=== PATIENT | male | born 1965 | race Two or more races ===

== ENCOUNTER 2022-03-17 10:51 | Inpatient (IN) | payer MEDICAID ==
[~2022-03-17] VITALS: Ht 170.2 cm; Wt 79.4 kg
--- NOTE | 2022-03-17 12:00 | NUR ---
RECEIVED PT 56 YRS MALE CAME FROM HOME ACCOMPANY BY FAMILY FOR GERALIZED EDEMA AND WEEKNE SS
[2022-03-17 12:54] LABS: CALCIUM, SERUM 8.1 mg/dL (8.5-10.1); CARBON DIOXIDE 21 mmol/L (21-32); CHLORIDE 113 mmol/L (98-107); CREATININE 0.9 mg/dL (0.6-1.3); GLUCOSE 65 mg/dL (74-106); POTASSIUM 3.6 mmol/L (3.5-5.1); SODIUM SERUM 145 mmol/L (136-145); UREA NITROGEN, BLOOD 15 mg/dL (7-18)
--- NOTE | 2022-03-17 13:00 | NUR ---
BLOOD DROW BY LAB TACH
[2022-03-17 13:09] LABS: ALANINE AMINOTRANSFERASE 10 U/L (12-78); ALBUMIN 2.5 g/dL (3.4-5.0); ALKALINE PHOSPHATASE 64 U/L (46-116); ASPARTATE AMINOTRANSFERASE 13 U/L (15-37); BILIRUBIN,DIRECT 0.5 mg/dL (0.0-0.2); BILIRUBIN,TOTAL 1.2 mg/dL (0.2-1.0); LIPASE 100 U/L (73-393)
[2022-03-17] MEDS ORDERED: IOHEXOL-300 100 ML VIAL IV ONE (13:26)
[2022-03-17] MEDS ORDERED: CT SWABBABLE VALVE TRANS SET 1 EA INFUS.SET MC ONE (13:26)
[2022-03-17] MEDS ORDERED: IV NS 0.9% 250 ML IV ONE (13:26)
[2022-03-17 13:39] LABS: BASOPHILS % (AUTO) 2.2 % (0.0-2.0); EOSINOPHILS % (AUTO) 0.5 % (0.0-6.0); LYMPHOCYTES # (AUTO) 0.4 K/uL (0.8-4.8); LYMPHOCYTES % (AUTO) 17.8 % (20.0-44.0); MEAN CORPUSCULAR HGB CONC 27 g/dl (31.0-36.0); MEAN CORPUSCULAR VOLUME 66 fL (80-96); MONOCYTES # (AUTO) 0.2 K/uL (0.1-1.30); MONOCYTES % (AUTO) 7.7 % (2.0-12.0); NEUTROPHILS # (AUTO) 1.6 K/uL (1.8-8.9); NEUTROPHILS % (AUTO) 71.8 % (43.0-81.0); PLATELET COUNT (AUTO) 95 K/uL (150-450); WHITE BLOOD COUNT (AUTO) 2.2 K/uL (4.3-11.0)
[2022-03-17 13:54] LABS: RED BLOOD CELL COUNT(AUTO) 1.67 MIL/uL (4.5-6.0)
[2022-03-17 13:56] LABS: HEMATOCRIT 11 % (39-51)
--- NOTE | 2022-03-17 13:58 | NUR ---
wbc 2.2, rbc 1.67, hgb 3.0, hematocrit 11, dr giles made aware
--- NOTE | 2022-03-17 14:30 | NUR ---
COVED SWAB SENT TO LAB
--- NOTE | 2022-03-17 15:47 | NUR ---
CALLED [facility] [phone] CLOSED DUE TO NO CAPACITY AT THIS TIME PER BEATRIZ.
[2022-03-17] MEDS ORDERED: FUROSEMIDE 40 MG/4 ML VIAL IV ONE (16:00)
[2022-03-17] MEDS ORDERED: CEFTRIAXONE 1GM BAG (ER ONLY) 1 GM/50 ML PIGGYBACK IV ONE (16:00)
[2022-03-17] MEDS ORDERED: CEFTRIAXONE 1GM BAG (ER ONLY) 50 ML IV ONE (16:15)
[2022-03-17] MEDS ORDERED: FUROSEMIDE 100 MG/10 ML VIAL ONE (16:16)
--- NOTE | 2022-03-17 17:50 | NUR ---
paracentesis done at bed side under us OUT PUT 5500 CLEARE GREEN COLOR NO BLEEDING NO BLOOD
--- NOTE | 2022-03-17 18:35 | NUR ---
PLAN TO SEND 500ML TO LAB FOR BX
[2022-03-17 19:04] LABS: BILIRUBIN,URINE NEGATIVE (NEGATIVE); COLOR,URINE YELLOW (YELLOW); LEUKOCYTE ESTERASE ,URINE NEGATIVE (NEGATIVE); NITRITE, URINE NEGATIVE (NEGATIVE); PH,URINE 5.5 (5.0-8.0); PROTEIN,URINE NEGATIVE (NEGATIVE); UGLUCOSE NEGATIVE (NEGATIVE); UROBILINOGEN,URINE 0.2 EU/dL (0.2)
--- NOTE | 2022-03-17 19:35 | NUR ---
HAND OFF TO ELLIOTT LI
--- NOTE | 2022-03-17 19:43 | NUR ---
Took over pt care. pt will require 3 units of blood. awaiting lab to call.
--- NOTE | 2022-03-17 20:03 | NUR ---
CALLED [facility], SPOKE TO [facility]
--- NOTE | 2022-03-17 20:46 | NUR ---
CALLED [facility], SPOKE TO ERICK, FAXED CLINICALS TO [phone]
--- NOTE | 2022-03-17 20:54 | NUR ---
[facility] SPOKE TO MARLEE STATES DO NOT HAVE HEPATOBILIARY SPECIALIST SERVICES
--- NOTE | 2022-03-17 21:03 | NUR ---
3 UNITS OF BLOOD AVAILABLE.
[2022-03-17 21:46] LABS: LYMPHOCYTES % (MANUAL) 12 % (16-48); MONOCYTES % (MANUAL) 6 % (0-11.0); NEUTROPHILS % (MANUAL) 82 (42-76)
--- NOTE | 2022-03-17 22:34 | NUR ---
PT RESTING COMFORTABLY. ON MIXING HOUSE OPERATOR AND PULSE OX. DENIES HAVING ANY PAIN.
--- NOTE | 2022-03-18 00:34 | NUR ---
PT DENIES HAVING ANY SOB/ VSS. REMAINS ON MONITOR AND PULSE OX.
--- NOTE | 2022-03-18 02:49 | NUR ---
PT NOTED TO BE ASLEEP, VSS. WILL CONTINUE TO MONITOR.
[2022-03-18 03:29] LABS: HEMOGLOBIN 6.6 g/dL (13.5-17.5)
--- NOTE | 2022-03-18 05:21 | NUR ---
REPEAT TROP DONE AT BEDSIDE.
--- NOTE | 2022-03-18 09:25 | NUR ---
IZZY BLACKBURN [phone] AT BEDSIDE
--- NOTE | 2022-03-18 09:40 | NUR ---
CALLED [facility] [phone]. TO TRANSPLANT MELROSE [phone] DR. MORIN SPEAKING WITH [facility].
--- NOTE | 2022-03-18 15:40 | NUR ---
CALLED [facility] [phone], SPOKE TO GABI , FAXED FACESHEET AND CLINICALS TO [phone]
[2022-03-18 16:19] LABS: BASOPHILS % (AUTO) 0.9 % (0.0-2.0); EOSINOPHILS % (AUTO) 0.1 % (0.0-6.0); HEMATOCRIT 27 % (39-51); HEMOGLOBIN 8.4 g/dL (13.5-17.5); LYMPHOCYTES # (AUTO) 0.4 K/uL (0.8-4.8); LYMPHOCYTES % (AUTO) 9.5 % (20.0-44.0); MEAN CORPUSCULAR HGB CONC 31 g/dl (31.0-36.0); MEAN CORPUSCULAR VOLUME 76 fL (80-96); MONOCYTES # (AUTO) 0.3 K/uL (0.1-1.30); MONOCYTES % (AUTO) 7.3 % (2.0-12.0); NEUTROPHILS # (AUTO) 3.8 K/uL (1.8-8.9); NEUTROPHILS % (AUTO) 82.2 % (43.0-81.0); PLATELET COUNT (AUTO) 105 K/uL (150-450); RED BLOOD CELL COUNT(AUTO) 3.56 MIL/uL (4.5-6.0); WHITE BLOOD COUNT (AUTO) 4.7 K/uL (4.3-11.0)
[2022-03-18 16:28] LABS: CALCIUM, SERUM 8.1 mg/dL (8.5-10.1); CARBON DIOXIDE 24 mmol/L (21-32); CHLORIDE 111 mmol/L (98-107); GLUCOSE 125 mg/dL (74-106); POTASSIUM 3.3 mmol/L (3.5-5.1); SODIUM SERUM 143 mmol/L (136-145); UREA NITROGEN, BLOOD 17 mg/dL (7-18)
[2022-03-18 16:43] LABS: ALANINE AMINOTRANSFERASE 7 U/L (12-78); ALBUMIN 2.3 g/dL (3.4-5.0); ALKALINE PHOSPHATASE 61 U/L (46-116); ASPARTATE AMINOTRANSFERASE 13 U/L (15-37); BILIRUBIN,TOTAL 2.6 mg/dL (0.2-1.0); TOTAL PROTEIN, SERUM 5.9 g/dL (6.4-8.2)
--- NOTE | 2022-03-18 18:30 | NUR ---
ANSELMO FROM [facility] TRANSFER [facility]: PT NOT A TRANSPLANT CANDIDATE. NOT ACCEPTING MEDICAL AFTER 1700. CAN BE REPRESENTED IN THE MORNING.
[2022-03-18 19:45] LABS: LYMPHOCYTES % (MANUAL) 18 % (16-48); MONOCYTES % (MANUAL) 3 % (0-11.0); NEUTROPHILS % (MANUAL) 79 (42-76)
--- NOTE | 2022-03-18 21:05 | NUR ---
PT IS RESTING COMFORTABLY IN BED, DENIES ANY PAIN AT THIS TIME. VSS. WILL CONTINUE TO MONITOR
--- NOTE | 2022-03-18 21:53 | NUR ---
CALLED [facility] [phone], SPOKE TO LEONORA FUENTES, NO TELE BEDS CURRENTLY BUT ACCEPTED FAX [phone] OF CLINICALS AND FACESHEET AND STATED WILL REVIEW IF TELE BED BECOMES AVAILABLE
--- NOTE | 2022-03-19 02:51 | NUR ---
PT IS ASLEEP, EASILY AROUSABLE WITH VERBAL STIMULLI. VSS. WILL CONTINUE TO MONITOR.
--- NOTE | 2022-03-19 09:00 | NUR ---
DR. MACARIO FROM [facility] SPEAKING WITH DR. CROOK. PT ACCEPTED AWAITING BED ASSIGNMENT.
--- NOTE | 2022-03-19 12:57 | NUR ---
CALLED TRANSFER CENTER [phone] PER ANSELMO AWAITING BED ASSIGNMENT. CALL FOLLOW UP THIS EVENING. PT ACCEPTED BY DR. SCOTT MACARIO.
--- NOTE | 2022-03-20 | NUR ---
PATIENT RESTING COMFORTABLY NO COMPLAINTS AT THIS TIME.
--- NOTE | 2022-03-20 05:45 | NUR ---
PATIENT REFUSING BLOOD DRAW, MD NUÑEZ MADE AWARE.
--- NOTE | 2022-03-20 08:56 | NUR ---
received a call from [facility] transfer center per Teresa still waiting for discharges, bed pending.
--- NOTE | 2022-03-20 13:21 | NUR ---
CALLED INPATIENT PLACEMENT [phone] MEDICINE CRYSTAL GERARD WILL CALL US BACK BEFORE 7PM
--- NOTE | 2022-03-20 15:40 | NUR ---
JOURNEYMAN ELECTRICIAN AT BEDSIDE FOR BLOOD DRAW
[2022-03-20 15:50] LABS: BASOPHILS # (AUTO) 0.1 K/uL (0.0-0.2); BASOPHILS % (AUTO) 2.5 % (0.0-2.0); EOSINOPHILS % (AUTO) 0.7 % (0.0-6.0); HEMATOCRIT 25 % (39-51); HEMOGLOBIN 7.4 g/dL (13.5-17.5); LYMPHOCYTES # (AUTO) 0.5 K/uL (0.8-4.8); LYMPHOCYTES % (AUTO) 16.3 % (20.0-44.0); MEAN CORPUSCULAR HGB CONC 30 g/dl (31.0-36.0); MEAN CORPUSCULAR VOLUME 77 fL (80-96); MONOCYTES # (AUTO) 0.3 K/uL (0.1-1.30); MONOCYTES % (AUTO) 11.9 % (2.0-12.0); NEUTROPHILS % (AUTO) 68.6 % (43.0-81.0); PLATELET COUNT (AUTO) 68 K/uL (150-450); RED BLOOD CELL COUNT(AUTO) 3.19 MIL/uL (4.5-6.0); WHITE BLOOD COUNT (AUTO) 2.9 K/uL (4.3-11.0)
[2022-03-20 18:22] LABS: BAND % (MANUAL) 2 % (0.0-5.0); EOSINOPHILS % (MANUAL) 3 % (0-4); LYMPHOCYTES % (MANUAL) 20 % (16-48); MONOCYTES % (MANUAL) 4 % (0-11.0); NEUTROPHILS % (MANUAL) 71 (42-76)
--- NOTE | 2022-03-20 18:26 | NUR ---
CALLED INPATIENT PLACEMENT [phone] [facility] FOR UPDATE STILL AWAITING DISCHARGES FOR BED AVAILABILITY.
--- NOTE | 2022-03-20 19:03 | NUR ---
NATALEE FROM [facility] CALLED [phone] TO FOLLOW UP ON IF WE STILL NEEDED ACCEPTANCE TO PATIENT. INFORMED THAT PT ACCEPTED AT [facility], BUT STILL AWAITING BED AVAILABILITY AFTER 30 HOURS PLUS. REQUESTING MD PROGRESS NOTES FAXED TO [phone] AND WILL CONTACT US PENDING ACCEPTENCE.
[2022-03-20 19:35] LABS: CALCIUM, SERUM 8.1 mg/dL (8.5-10.1); CREATININE 0.7 mg/dL (0.6-1.3); POTASSIUM 3.7 mmol/L (3.5-5.1)
[2022-03-20 19:41] LABS: ALBUMIN 2.2 g/dL (3.4-5.0); BILIRUBIN,TOTAL 1.7 mg/dL (0.2-1.0); TOTAL PROTEIN, SERUM 5.6 g/dL (6.4-8.2)
--- NOTE | 2022-03-20 22:26 | NUR ---
ESTELA FROM [facility]: IN NEED OF CLINICALS FAXED TO [phone] CALL BACK AFTER FAXED FOR UPDATED VS [phone]
--- NOTE | 2022-03-20 22:42 | NUR ---
PCR COVID SWAB COLLECTED AND SENT TO LAB
--- NOTE | 2022-03-21 00:30 | NUR ---
MELD SCORE: 15 POINTS
--- NOTE | 2022-03-21 00:42 | NUR ---
S/W ESTELA FROM [facility] , DR MOROCHO IS DECLINING PT, RECOMMENDS : DIURETICS AND OUTPATIENT TRANSPLANT CLINIC
[2022-03-21 06:30] LABS: ALBUMIN 1.9 g/dL (3.4-5.0); BILIRUBIN,DIRECT 0.4 mg/dL (0.0-0.2); BILIRUBIN,TOTAL 1.7 mg/dL (0.2-1.0); CREATININE 0.6 mg/dL (0.6-1.3); POTASSIUM 3.4 mmol/L (3.5-5.1)
[2022-03-21 06:53] LABS: BASOPHILS % (AUTO) 1.2 % (0.0-2.0); HEMATOCRIT 21 % (39-51); LYMPHOCYTES # (AUTO) 0.4 K/uL (0.8-4.8); LYMPHOCYTES % (AUTO) 21.4 % (20.0-44.0); MEAN CORPUSCULAR HGB CONC 30 g/dl (31.0-36.0); MEAN CORPUSCULAR VOLUME 77 fL (80-96); MONOCYTES # (AUTO) 0.2 K/uL (0.1-1.30); MONOCYTES % (AUTO) 11.1 % (2.0-12.0); NEUTROPHILS # (AUTO) 1.2 K/uL (1.8-8.9); NEUTROPHILS % (AUTO) 65.3 % (43.0-81.0); PLATELET COUNT (AUTO) 57 K/uL (150-450); RED BLOOD CELL COUNT(AUTO) 2.67 MIL/uL (4.5-6.0)
[2022-03-21 06:55] LABS: HEMOGLOBIN 6.2 g/dL (13.5-17.5); WHITE BLOOD COUNT (AUTO) 1.8 K/uL (4.3-11.0)
--- NOTE | 2022-03-21 06:56 | NUR ---
CALL FROM LAB. HGB 6.2. DR OTTO NOTIFIED
[2022-03-21 07:38] LABS: EOSINOPHILS % (MANUAL) 1 % (0-4); LYMPHOCYTES % (MANUAL) 24 % (16-48); MONOCYTES % (MANUAL) 8 % (0-11.0); NEUTROPHILS % (MANUAL) 67 (42-76)
--- NOTE | 2022-03-21 08:11 | NUR ---
CALLED DR. BUTLER LEFT VM
--- NOTE | 2022-03-21 08:13 | NUR ---
[facility] CALLED FLOOR CLERK PAGED.
--- NOTE | 2022-03-21 08:50 | NUR ---
MOVE SHEET SUBMITTED.
[2022-03-21] MEDS ORDERED: ACETAMINOPHEN 325 MG TABLET PO PRN (09:00)
[2022-03-21] MEDS ORDERED: ZOLPIDEM TARTRATE 5 MG TABLET PO PRN (09:00)
[2022-03-21] MEDS ORDERED: ONDANSETRON HCL/PF 4 MG/2 ML VIAL IVP PRN (09:00)
[2022-03-21] MEDS ORDERED: MAG HYDROX/AL HYDROX/SIMETH 30 ML UDC PO PRN (09:00)
[2022-03-21] MEDS ORDERED: MAGNESIUM HYDROXIDE 30 ML UDC PO PRN (09:00)
[2022-03-21] MEDS ORDERED: IV NS 0.9% 1,000 ML IV PRN (09:00)
[2022-03-21] MEDS ORDERED: Z GUARD REMEDY 4 OZ OINT TP PRN (09:00)
--- NOTE | 2022-03-21 09:35 | NUR ---
GOT BED 304-2
--- NOTE | 2022-03-21 09:55 | NUR ---
PT REPORT GIVEN TO JEN SALMON
--- NOTE | 2022-03-21 10:20 | NUR ---
PT TRANSFERRED TO [facility] VIA GURNEY. WARM HANDOFF GIVEN TO RN ASSIGNED.
--- NOTE | 2022-03-21 10:30 | NUR ---
POST EXCHANGE MANAGER NOTES RECEIVED PT FROM E.R. STAFF VIA [facility], PT IS AWAKE, ALERT AND ORIENTED, NO COMPLAINT OF PAIN AT THIS TIME, RESPIRATIONS NORMAL, ABLE TO WALK FROM [facility] TO BED, STEADY GAIT, IV SITE AT RIGHT A/C INTACT, ROOM SET UP ORIENTATION PROVIDED TO PT, VERBALIZED UNDERSTANDING, SEEN AND EXAMINED BY DR. BAKER, PLAN OF CARE DISCUSSED WITH PT, VITALS TAKEN AND RECORDED, ORDER RECEIVED TO TRANSFUSE 1 UNIT PRBC, NOTED AND CARRIED OUT.
--- NOTE | 2022-03-21 10:30 | NUR ---
PROCESS AREA SUPERVISOR NOTES PT ON TELE MONITORING, CURRENTLY SINUS RHYTHM WITH HR ON THE 70'S, PT NOTED WITH DISTENDED ABDOMEN, NO COMPLAINT OF PAIN OR ANY DISCOMFORT AT THIS TIME.
[2022-03-21] MEDS: PANTOPRAZOLE 40 MG VIAL IV SCH ×2 (12:42→22:01)
[2022-03-21 13:18] LABS: HEMOGLOBIN 6.9 g/dL (13.5-17.5)
[2022-03-21 16:02] VITALS: BP 112/68
[2022-03-21 16:17] VITALS: BP 108/70
[2022-03-21 16:40] VITALS: BP 130/67
[2022-03-21 17:40] VITALS: BP 141/69
--- NOTE | 2022-03-21 18:26 | NUR ---
INVENTORY ADMINISTRATOR NOTES PT IN BED, RESTING, AWAKE, ALERT AND ORIENTED, NO COMPLAINT OF PAIN OR ANY DISCOMFORT, BLOOD TRANSFUSION ONGOING, TOLERATING WELL, VITALS REMAIN STABLE, AFEBRILE, CALL LIGHT WITHIN REACH, KEPT NPO, ALL NEEDS ATTENDED.
[2022-03-21 18:55] VITALS: BP 142/70
--- NOTE | 2022-03-21 19:20 | NUR ---
RETAIL PLANNING MANAGER OPENING NOTES: RECEIVED PATIENT IN BED, AWAKE, NO S/S OF DISTRESS NOTED. NO COMPLAIN OF PAIN. CALL LIGHT WITHIN REACH. BED IN LOWEST AND LOCKED POSITION. BED ALARM ON. WITH ASCITES. NPO, PATIENT AWARE,SENIOR INTERNAL AUDITOR AWARE. STOOL COLLECTION FOR OB,PATIENT IS AWARE. ON SR 72.
[2022-03-21 20:00] VITALS: BP 119/75
--- NOTE | 2022-03-21 20:16 | NUR ---
A/O X4.
--- NOTE | 2022-03-21 23:30 | NUR ---
patient refused the IVF for now.
[2022-03-22] VITALS: BP 109/69
[2022-03-22 04:00] VITALS: BP 107/66
[2022-03-22 05:52] LABS: BASOPHILS % (AUTO) 1.4 % (0.0-2.0); EOSINOPHILS % (AUTO) 1.1 % (0.0-6.0); HEMATOCRIT 26 % (39-51); HEMOGLOBIN 7.6 g/dL (13.5-17.5); LYMPHOCYTES # (AUTO) 0.4 K/uL (0.8-4.8); LYMPHOCYTES % (AUTO) 21.4 % (20.0-44.0); MEAN CORPUSCULAR HGB CONC 30 g/dl (31.0-36.0); MEAN CORPUSCULAR VOLUME 80 fL (80-96); MONOCYTES # (AUTO) 0.2 K/uL (0.1-1.30); NEUTROPHILS # (AUTO) 1.1 K/uL (1.8-8.9); NEUTROPHILS % (AUTO) 64.1 % (43.0-81.0)
[2022-03-22 06:19] LABS: CALCIUM, SERUM 8.1 mg/dL (8.5-10.1); CREATININE 0.7 mg/dL (0.6-1.3); MAGNESIUM 1.8 mg/dL (1.8-2.4); PHOSPHORUS 3.3 mg/dL (2.5-4.9); POTASSIUM 3.7 mmol/L (3.5-5.1); TOTAL PROTEIN, SERUM 5.2 g/dL (6.4-8.2)
[2022-03-22 06:33] LABS: PLATELET COUNT (AUTO) 49 K/uL (150-450); WHITE BLOOD COUNT (AUTO) 1.8 K/uL (4.3-11.0)
--- NOTE | 2022-03-22 06:41 | NUR ---
INFORMED MD RE: WBC-1.8, PLATELET-49.
--- NOTE | 2022-03-22 07:15 | NUR ---
RN TELEMETRY NOTE RECEIVED PATIENT ALERT AND ORIENTEDX4. ON ROOM AIR WIHT EQUAL AND UNLABORED BREATHING NOT IN DISTRESS. ON TEL MONITOR RFA G18 WITH NS RUNNING AT 90CC/HR. IN STABLE CONDITION.
[2022-03-22 08:00] VITALS: BP 124/67
[2022-03-22] MEDS: PANTOPRAZOLE 40 MG VIAL IV SCH ×2 (08:47→21:44)
[2022-03-22] MEDS ORDERED: IV LR 1000 ML 1,000 ML IV PRN (10:30)
[2022-03-22] MEDS ORDERED: OCTREOTIDE 500 MCG in IV NS 0.9% 99 ML IV PRN (10:30)
[2022-03-22] MEDS ORDERED: OCTREOTIDE 50 MCG/ML AMPUL IV ONE (10:30)
[2022-03-22 11:20] LABS: EOSINOPHILS % (MANUAL) 1 % (0-4); LYMPHOCYTES % (MANUAL) 18 % (16-48); MONOCYTES % (MANUAL) 4 % (0-11.0); NEUTROPHILS % (MANUAL) 77 (42-76)
[2022-03-22] MEDS ORDERED: ANESTHESIA TRAY IN PYXIS 1 EA TRAY MC ONE (11:44)
--- NOTE | 2022-03-22 11:45 | NUR ---
radha used with manager developmental number [id number]
--- NOTE | 2022-03-22 12:00 | NUR ---
STUDENT AMBASSADOR NOTE PATIENT BROUGHT DOWN AT OR FOR EGD UNDER DR. BUTLER. CONSENTS SIGHNED AND SECURE, ATTACHED TO CHART. PATIENT PICKED UP BY OR NURSE. IN STABLE CONDITION.
--- NOTE | 2022-03-22 13:50 | NUR ---
LINE TESTER NOTE PATIENT BACK FROM OR. ALERT AND ORIENTED. WITH SOME DISCOMFORT BUT REFUSED ANALGESIC AT THIS TIME. S/P EGD WITH BANDING X 7. IN STABLE CONDITION. ON ROOM AIR. HOOKED BACK TO TELE MONITOR.
--- NOTE | 2022-03-22 14:30 | NUR ---
PACKAGER HEAD NOTE WITH MD ORDER TO START ON CLEAR LIQUIDS. ORDER MADE AND VERIFIED. PATIENT FOR CT GUIDED PARACENTESIS, CONSENT SECURED AND ATTACHED TO CHART. VERIFIED WITH ENGRAVER ORNAMENTAL DESIGN, PATIENT CAN EAT. AND WILL CALL AGAIN IF PROCEDURE WOULD PUSH THROUGH BECAUSE OF LATEST PLATELET RESULT. NO SIGNS OF BLEEDING NOTED AT THIS TIME. IN STABLE CONDITION.
[2022-03-22] MEDS: CEFTRIAXONE 1 G in IV D5W 50 ML IV SCH (15:24)
[2022-03-22 16:00] VITALS: BP 140/78
[2022-03-22] MEDS: FUROSEMIDE 40 MG TABLET PO SCH (18:17)
[2022-03-22] MEDS: SPIRONOLACTONE 25 MG TABLET PO SCH (18:17)
--- NOTE | 2022-03-22 19:30 | NUR ---
TELERN RECEIVED ASLEEP. PRESENT IVF LR AT 100CC/HR INFUSING WELL. TELE MONITOR SHOWING NSR AT RATE 74. TO CONTINUE.
[2022-03-22 19:57] VITALS: BP 133/75
[2022-03-22 20:00] VITALS: BP 133/75
--- NOTE | 2022-03-22 20:49 | NUR ---
TELERN AWAKE AT THIS TIME. REFUSED IVF AT THIS TIME WANTED EVERYTHING INCLUDING BLOOD WORKS IN AM INSTEAD. IVF ON HOLD FOR NOW.
--- NOTE | 2022-03-22 20:51 | NUR ---
TELERN RECEIVED CALL FROM RADIOLOGY DEPT FOR CLARIFICATION OF PARACENTHESIS. ULTRASOUND GUIDED NOT CT. NOTED.
[2022-03-22] MEDS: PROPRANOLOL HCL 10 MG TABLET PO SCH (21:45)
--- NOTE | 2022-03-22 22:58 | NUR ---
TELERN DUE MEDS GIVEN , STILL REFUSED IVFLUIDS.
[2022-03-23] VITALS (8 sets, daily range): BP systolic 110–141; BP diastolic 63–77
[2022-03-23 06:18] LABS: CALCIUM, SERUM 8.2 mg/dL (8.5-10.1); CREATININE 0.8 mg/dL (0.6-1.3); MAGNESIUM 1.8 mg/dL (1.8-2.4); PHOSPHORUS 3.9 mg/dL (2.5-4.9); POTASSIUM 3.7 mmol/L (3.5-5.1)
--- NOTE | 2022-03-23 06:41 | NUR ---
Lilia from [facility] transfer center called to inform that case is closed d/t patient is already inpatient
--- NOTE | 2022-03-23 06:53 | NUR ---
TELERN REMAINS UNCHANGED. PRESENT IVF STILL DECLINED WILL ENDORSED TO INCOMING RN
--- NOTE | 2022-03-23 07:30 | NUR ---
OIL SPOT WASHER NOTES RECEIVED PATIENT AWAKE IN BED. PATIENT IS ALERT AND ORIENTED TIMES 4. NO PAIN NOTED. NO SOB NOTED. NO DISTRESS NOTED. ON ROOM AIR AND TOLERATING WELL. ON TELE MONITOR READING SR 61 BPM. PATIENT IS AMBULATORY . USING URINAL. ABLE TO MAKE NEEDS KNOWN. IV ACCESS ON THE RIGHT FOREARM G#18 NOTED INTACT AND PATENT. RUNNING LR AT 100ML/HR. ALL SAFETY MEASURES IN PLACE . BED LOCKED IN THE LOWEST POSITION. CALL LIGHT AND TABLE IN EASY REACH. SIDE RAILS UP TIMES 2. WILL CONTINUE TO MONITOR.
[2022-03-23 07:58] LABS: EOSINOPHILS % (AUTO) 2.2 % (0.0-6.0); HEMATOCRIT 29 % (39-51); HEMOGLOBIN 8.7 g/dL (13.5-17.5); LYMPHOCYTES # (AUTO) 0.4 K/uL (0.8-4.8); LYMPHOCYTES % (AUTO) 16.9 % (20.0-44.0); MEAN CORPUSCULAR HGB CONC 31 g/dl (31.0-36.0); MEAN CORPUSCULAR VOLUME 77 fL (80-96); MONOCYTES # (AUTO) 0.2 K/uL (0.1-1.30); MONOCYTES % (AUTO) 10.3 % (2.0-12.0); NEUTROPHILS # (AUTO) 1.6 K/uL (1.8-8.9); NEUTROPHILS % (AUTO) 68.6 % (43.0-81.0); PLATELET COUNT (AUTO) 58 K/uL (150-450); RED BLOOD CELL COUNT(AUTO) 3.71 MIL/uL (4.5-6.0); WHITE BLOOD COUNT (AUTO) 2.4 K/uL (4.3-11.0)
[2022-03-23] MEDS: PANTOPRAZOLE 40 MG VIAL IV SCH ×2 (09:42→20:44)
[2022-03-23] MEDS: PROPRANOLOL HCL 10 MG TABLET PO SCH ×2 (09:42→20:46)
[2022-03-23] MEDS: FUROSEMIDE 40 MG TABLET PO SCH (09:42)
[2022-03-23] MEDS: SPIRONOLACTONE 25 MG TABLET PO SCH (09:43)
[2022-03-23] MEDS: CEFTRIAXONE 1 G in IV D5W 50 ML IV SCH (14:04)
[2022-03-23 17:05] LABS: HEMOGLOBIN 9.7 g/dL (13.5-17.5)
--- NOTE | 2022-03-23 18:40 | NUR ---
SCALLOPER CLOSING NOTES PATIENT AWAKE IN BED. PATIENT IS ALERT AND ORIENTED TIMES 4. NO PAIN NOTED. NO SOB NOTED. NO DISTRESS NOTED. ON ROOM AIR AND TOLERATING WELL. ON TELE MONITOR READING SR . PATIENT IS AMBULATORY . USING URINAL. ABLE TO MAKE NEEDS KNOWN. IV ACCESS ON THE RIGHT FOREARM G#18 NOTED INTACT AND PATENT. PATIENT REFUSED IV HYDRATION. ALL SAFETY MEASURES IN PLACE . BED LOCKED IN THE LOWEST POSITION. CALL LIGHT AND TABLE IN EASY REACH. SIDE RAILS UP TIMES 2. WILL ENDORSE FOR BILLIE.
--- NOTE | 2022-03-23 19:15 | NUR ---
RN OPENING NOTE PATIENT IN BED, EYES CLOSED. EASILY AWAKENED. PATIENT ABLE TO MAKE NEEDS KNOWN. ABLE TO SPEAK/UNDERSTAND BASIC PORTUGUESE. PATIENT DOES NOT REPORT ANY PAIN AT THIS TIME. PATIENT IS ON RA, TOLERATING WELL. TELE MONITOR READS SR 61 BPM. PATIENT HAS A RFA 18 G PATENT AND INTACT, SALINE LOCKED AT THIS TIME, PATIENT REFUSES IVF NOW. PATIENT NOT IN ANY APPARENT DISTRESS. SAFETY MEASURES IN PLACE: BED LOCKED AND IN LOWEST POSITION, CALL LIGHT WITHIN REACH, SIDE RAILS UP. WILL MONITOR PATIENT CLOSELY.
--- NOTE | 2022-03-23 21:10 | NUR ---
RN NOTE RFA IV ACCESS INFILTRATED ELEVATED EXTREMITY, L HAND 22 G ESTABLISHED, PATENT AND INTACT.
[2022-03-23 21:51] LABS: EOSINOPHILS % (MANUAL) 4 % (0-4); LYMPHOCYTES % (MANUAL) 10 % (16-48); MONOCYTES % (MANUAL) 10 % (0-11.0); NEUTROPHILS % (MANUAL) 76 (42-76)
[2022-03-24] VITALS: BP 98/61
[2022-03-24 04:00] VITALS: BP 104/30
--- NOTE | 2022-03-24 06:46 | NUR ---
RN CLOSING NOTE PATIENT IN BED, AWAKE, PATIENT IS A/O X 4, ABLE TO MAKE NEEDS KNOWN. ABLE TO SPEAK/UNDERSTAND BASIC [place]ENLAND[place]. PATIENT DOES NOT REPORT ANY PAIN AT THIS TIME. PATIENT IS ON RA, TOLERATING WELL. TELE MONITOR READS SB 54 BPM. PATIENT HAS A LHAND 22 G PATENT AND INTACT, SALINE LOCKED AT THIS TIME, PATIENT REFUSES IVF STILL. PATIENT NOT IN ANY APPARENT DISTRESS. SAFETY MEASURES IN PLACE: BED LOCKED AND IN LOWEST POSITION, CALL LIGHT WITHIN REACH, SIDE RAILS UP. ALL NEEDS MET AND ATTENDED. ALL ORDERS CARRIED OUT. WILL ENDORSE TO DAY SHIFT NURSE FOR BILLIE.
--- NOTE | 2022-03-24 07:45 | NUR ---
ENROLLMENT CONSULTANT OPENING NOTES: PATIENT IN BED, AWAKE, RESTING IN BEDS, IS A/O X 4, VERBALIZES NEEDS. ABLE TO SPEAK/UNDERSTAND BASIC SAMI. DENIES PAIN AT THIS TIME. PATIENT IS ON RA, TOLERATING WELL. NO S/S OF SOB OR ACUTE DISTRESS AT THE MOMENT. TELE MONITOR READS SB 57 BPM. PATIENT HAS A LHAND 22 G PATENT AND INTACT, SALINE LOCKED AT THIS TIME, PATIENT REFUSES IVF STILL. SAFETY MEASURES IN PLACE: BED LOCKED AND IN LOWEST POSITION, CALL LIGHT WITHIN REACH, SIDE RAILS UP; WILL CONT WITH PLAN OF CARE DURING SHIFT.
[2022-03-24 08:00] VITALS: BP 97/56
[2022-03-24] MEDS ORDERED: PROP10TA68 PO (08:50)
[2022-03-24] MEDS ORDERED: FURO40TA5 PO (08:50)
[2022-03-24] MEDS ORDERED: SPIR25TA6 PO (08:50)
[2022-03-24] MEDS ORDERED: PANT40TA2 PO (08:52)
[2022-03-24] MEDS: PROPRANOLOL HCL 10 MG TABLET PO SCH (09:00)
[2022-03-24] MEDS: PANTOPRAZOLE 40 MG VIAL IV SCH (09:32)
[2022-03-24] MEDS: SPIRONOLACTONE 25 MG TABLET PO SCH (09:33)
[2022-03-24] MEDS: FUROSEMIDE 40 MG TABLET PO SCH (09:35)
[2022-03-24 11:36] VITALS: BP 101/68
--- NOTE | 2022-03-24 12:00 | NUR ---
GRAPHIC ARTISTDOOR TO DOOR SALESMAN NOTES: RN CARRIED OUT DC ORDERS FOR THIS PT. PT IS STABLE AT TIME OF DISCHARGE; VITALS: BP- 110/56, HR- 57, TEMP- 98.2, RR- 18, O2 SAT 99%; NO S/S OF ACUTE DISTRESS AND SOB AT DC. MD INSTRUCTIONS, NEW MEDICATION, BELONGINGS LIST DISCUSSED WITH PT AND FAMILY. PT SIGNED DC DOCUMENTS. PT GIVEN DC PACKET AND [facility] RESOURCES FOR FOLLOW UP. PT AND FAMILY VERBALIZED UNDERSTANDING. PT ESCORTED TO LOBBY BY STAFF, LEFT VIA PRIVATE CAR WITH FAMILY - [place]
== END 2022-03-24 12:00 | disposition home or self-care (01) | DRG 280 ==
LOC: ER 10:57 → TELE 03-20 09:45
PROVIDERS: ADMIT Nurse Practitioner Acute Care; ATTEND Nurse Practitioner Acute Care
PROC: 0W9G3ZZ Drainage of Peritoneal Cavity, Percutaneous Approach (ICD-10-PCS; 2022-03-20)
PROC: 30233N1 Transfusion of Nonautologous Red Blood Cells into Peripheral Vein, Percutaneous Approach (ICD-10-PCS; 2022-03-21)
PROC: 06L38CZ Occlusion of Esophageal Vein with Extraluminal Device, Via Natural or Artificial Opening Endoscopic (ICD-10-PCS; principal; 2022-03-22)
PROC: 0W9G3ZZ Drainage of Peritoneal Cavity, Percutaneous Approach (ICD-10-PCS; 2022-03-23)
DX: K70.31 Alcoholic cirrhosis of liver with ascites (principal); I81 Portal vein thrombosis; I85.11 Secondary esophageal varices with bleeding; E43 Unspecified severe protein-calorie malnutrition; D61.818 Other pancytopenia; K76.6 Portal hypertension; E83.51 Hypocalcemia; D73.5 Infarction of spleen; E87.6 Hypokalemia; E88.09 Other disorders of plasma-protein metabolism, not elsewhere classified; K44.9 Diaphragmatic hernia without obstruction or gangrene; R53.1 Weakness; R60.1 Generalized edema; R16.1 Splenomegaly, not elsewhere classified; K29.70 Gastritis, unspecified, without bleeding; Z90.49 Acquired absence of other specified parts of digestive tract; Z20.822 Contact with and (suspected) exposure to COVID-19; R74.01 Elevation of levels of liver transaminase levels; Z68.27 Body mass index [BMI] 27.0-27.9, adult
CPT/HCPCS: 36415; 71045-TC; 76700-TC; 76942-TC; 80048-TC; 80053-TC; 80076-TC; 82140-TC; 83605-TC; 83690-TC; 83735-TC; 83880; 84100-TC; 84484-TC; 85025-TC; 85027-TC; 85610-TC; 86850-TC; 87070-TC; 87081-TC; A6403; C9113; C9803; G0378; J0696; J1940; J2704; J3490; J7030; J7040; J7050; J7060; J7120; P9016; Q9967; U0003